=== PATIENT | female | born 1950 | race Caucasian/White ===

== ENCOUNTER 2021-11-27 22:23 | Inpatient (IN) | payer MEDICARE, OTHER ==
[~2021-11-27] VITALS: Ht 167.6 cm; Wt 72.6 kg
[2021-11-27 23:55] LABS: ABG PCO2 40 mmHg (35-45); ABG PH 7.56 (7.35-7.45); ABG PO2 37 mmHg (80-105)
[2021-11-27 23:56] LABS: ABG HCO3 13 mmol/L (22-26); ABG TCO2 37
[2021-11-27 23:58] LABS: BASOPHILS # (AUTO) 0.1 (0.0-0.1); BASOPHILS % 0.2 % (0.0-1.0); EOSINOPHILS # (AUTO) 0.1 (0.0-0.4); EOSINOPHILS % 0.2 % (0.0-6.0); HEMATOCRIT 23.6 % (34.2-44.1); LYMPHOCYTES # (AUTO) 0.6 (1.0-3.2); LYMPHOCYTES % 2.1 % (18.0-39.1); MEAN CORPUSCULAR HEMOGLOBIN 32.4 pg (28-32); MEAN CORPUSCULAR HGB CONC 28.8 g/dL (31-35); MEAN CORPUSCULAR VOLUME 112.4 fL (81-99); MONOCYTES # (AUTO) 1.1 (0.2-0.8); MONOCYTES % 3.6 % (4.4-11.3); NEUTROPHILS # (AUTO) 27.5 (2.1-6.9); NEUTROPHILS % 90.5 % (38.7-80.0); PLATELET COUNT 611 x10e3/uL (140-360); RED CELL DISTRIBUTION WIDTH 19.6 % (11.7-14.4)
[2021-11-28 00:05] LABS: HEMOGLOBIN 6.8 g/dL (12.0-16.0)
[2021-11-28 00:14] LABS: ALBUMIN 2.2 g/dL (3.5-5.0); ALBUMIN/GLOBULIN RATIO 0.6 (0.8-2.0); ANION GAP 17.8 mmol/L (8-16); CALCIUM 8.8 mg/dL (8.4-10.2); CREATININE, SERUM 0.54 mg/dL (0.57-1.11)
[2021-11-28] MEDS ORDERED: CEFTRIAXONE 1 GM in SODIUM CHLORIDE 0.9% 50ML 50 ML IV SCH (00:15)
[2021-11-28 00:22] LABS: POTASSIUM 2.8 mmol/L (3.5-5.1)
[2021-11-28] MEDS ORDERED: POTASSIUM CHLORIDE 20MEQ/100ML 100 ML IV STA ×2 (00:24)
[2021-11-28] MEDS ORDERED: SODIUM CHLORIDE 0.9% 250ML 250 ML IV ONE (01:45)
[2021-11-28] MEDS ORDERED: ONDANSETRON HCL INJ 2MG/ML 2ML 2 MG/ML VIAL IV PRN (01:45)
[2021-11-28] MEDS ORDERED: ACETAMINOPHEN 325 MG TAB PO PRN (01:45)
[2021-11-28] MEDS ORDERED: GUAIFENESIN/DEXTROMETHORPHAN LIQD 5 ML UDC NG PRN (02:00)
[2021-11-28 02:53] LABS: CLARITY,URINE SL CLOUDY (CLEAR); LEUKOCYTE ESTERASE ,URINE NEGATIVE (NEGATIVE); NITRITE,URINE NEGATIVE (NEGATIVE); PROTEIN,URINE DIPSTICK TRACE (NEGATIVE)
[2021-11-28 02:54] LABS: AMPHETAMINES SCREEN,URINE NEGATIVE (NEGATIVE); BENZODIAZEPINES SCREEN,URINE NEGATIVE (NEGATIVE); COLOR,URINE YELLOW (YELLOW); KETONES,URINE NEGATIVE (NEGATIVE); PHENCYCLIDINE SCREEN,URINE NEGATIVE (NEGATIVE); URINE UROBILINOGEN 0.2 mg/dL (0.2 - 1)
[2021-11-28 03:17] LABS: CREATINE KINASE MB 0.5 ng/mL (0-5.0)
[2021-11-28 03:18] LABS: BACTERIA,URINE MODERATE /HPF
[2021-11-28 03:19] LABS: EPITHELIAL CELLS,URINE MODERATE /LPF; MUCUS,URINE MANY (RARE); TRANSITIONAL EPI CELLS,URINE FEW
[2021-11-28] MEDS ORDERED: KCL 20MEQ/.9 SOD CHL 1,000 ML IV ONE ×2 (03:32→04:45)
[2021-11-28 03:49] LABS: FERRITIN 1612.98 ng/mL (4.63-204.00)
[2021-11-28 06:36] LABS: BASOPHILS % 0.2 % (0.0-1.0); LYMPHOCYTES # (AUTO) 0.5 (1.0-3.2); LYMPHOCYTES % 2.3 % (18.0-39.1); MEAN CORPUSCULAR HGB CONC 30.1 g/dL (31-35); MEAN CORPUSCULAR VOLUME 116.6 fL (81-99); MONOCYTES # (AUTO) 0.2 (0.2-0.8); MONOCYTES % 1.1 % (4.4-11.3); NEUTROPHILS # (AUTO) 20.2 (2.1-6.9); NEUTROPHILS % 93.6 % (38.7-80.0); PLATELET COUNT 520 x10e3/uL (140-360); RED BLOOD COUNT 1.57 x10e6/uL (3.6-5.1); RED CELL DISTRIBUTION WIDTH 20.5 % (11.7-14.4)
[2021-11-28 06:48] LABS: ALBUMIN 1.9 g/dL (3.5-5.0); ALBUMIN/GLOBULIN RATIO 0.6 (0.8-2.0); CREATININE, SERUM 0.45 mg/dL (0.57-1.11)
[2021-11-28 06:55] LABS: CREATINE KINASE MB 0.3 ng/mL (0-5.0)
[2021-11-28 06:59] LABS: HEMATOCRIT 18.3 % (34.2-44.1); HEMOGLOBIN 5.5 g/dL (12.0-16.0)
[2021-11-28] MEDS ORDERED: SODIUM CHLORIDE 0.9% 250ML 250 ML ONE (07:53)
[2021-11-28] MEDS: ENOXAPARIN 30 MG/0.3 ML SYR SC SCH ×2 (08:01→18:56)
[2021-11-28] MEDS: DEXAMETHASONE SOD PHOS 10 MG/1 ML VIAL IV SCH (08:01)
[2021-11-28] MEDS: BENZONATATE 100 MG CAP PO SCH ×3 (09:00→21:53)
[2021-11-28] MEDS: ASCORBIC ACID 500 MG TAB PO SCH ×2 (09:00→18:56)
[2021-11-28] MEDS ORDERED: CEFTRIAXONE 2 GM in SODIUM CHLORIDE 0.9% 100 ML IV SCH (09:00)
[2021-11-28] MEDS: ZINC SULFATE 50 MG CAP PO SCH (09:00)
[2021-11-28 11:02] LABS: LYMPHOCYTES % (MANUAL) 4 % (19-48); NEUTROPHILS % (MANUAL) 96 % (40-74)
[2021-11-28 11:03] LABS: PLATELET ESTIMATE SLIGHTLY INCREASED; PLATELET MORPHOLOGY COMMENT NORMAL; RBC MORPHOLOGY COMMENT NORMAL
[2021-11-28] MEDS ORDERED: SODIUM CHLORIDE 0.9% 1000ML 1,000 ML IV ONE (13:45)
[2021-11-28] MEDS ORDERED: SODIUM CHLORIDE 0.9% 50ML 50 ML ONE (13:52)
[2021-11-28] MEDS ORDERED: IOPAMIDOL 370 MG/ML 200 ML INFUS..BTL INJ ONE (13:52)
[2021-11-28] MEDS ORDERED: GUAIFENESI100 MG/5 M PO (14:07)
[2021-11-28] MEDS ORDERED: DIPHENHYDRAMINE25 MG PO (14:16)
[2021-11-28] MEDS ORDERED: POLYETHYLENE GL17 GM PO (14:16)
[2021-11-28] MEDS ORDERED: FOSAMAX70 MG PO (14:16)
[2021-11-28] MEDS ORDERED: PROTONIX40 MG PO (14:16)
[2021-11-28] MEDS ORDERED: ULTRAM50 MG PO (14:16)
[2021-11-28] MEDS ORDERED: METOPROLOL SUCC25 MG PO (14:16)
[2021-11-28] MEDS ORDERED: NYSTATIN1 EAC2 TOP (14:16)
[2021-11-28] MEDS ORDERED: BACLOFEN10 MG PO (14:16)
[2021-11-28] MEDS ORDERED: SUCRALFATE1 G/10 ML (14:16)
[2021-11-28] MEDS ORDERED: LIPITOR20 MG PO (14:16)
[2021-11-28] MEDS ORDERED: AMLODIPINE BESYL5 MG PO (14:16)
[2021-11-28] MEDS ORDERED: ZOLOFT50 MG (14:16)
[2021-11-28] MEDS ORDERED: KLONOPIN0.5 MG PO (14:16)
[2021-11-28] MEDS ORDERED: TRAZODONE HCL50 MG PO (14:16)
[2021-11-28] MEDS ORDERED: LASIX40 MG PO (14:16)
[2021-11-28] MEDS ORDERED: TYLENOL325 MG PO (14:16)
[2021-11-28 15:20] LABS: BASOPHILS % 0.1 % (0.0-1.0); HEMATOCRIT 29.7 % (34.2-44.1); LYMPHOCYTES # (AUTO) 0.6 (1.0-3.2); LYMPHOCYTES % 3.2 % (18.0-39.1); MEAN CORPUSCULAR HEMOGLOBIN 30.1 pg (28-32); MEAN CORPUSCULAR HGB CONC 30.3 g/dL (31-35); MEAN CORPUSCULAR VOLUME 99.3 fL (81-99); MONOCYTES # (AUTO) 0.6 (0.2-0.8); MONOCYTES % 3.6 % (4.4-11.3); NEUTROPHILS # (AUTO) 16.2 (2.1-6.9); NEUTROPHILS % 91.4 % (38.7-80.0); PLATELET COUNT 520 x10e3/uL (140-360); RED BLOOD COUNT 2.99 x10e6/uL (3.6-5.1); RED CELL DISTRIBUTION WIDTH 24.4 % (11.7-14.4)
[2021-11-28 15:46] LABS: CREATINE KINASE MB 0.6 ng/mL (0-5.0)
[2021-11-28] MEDS ORDERED: REMDESIVIR 100MG 200 MG in SODIUM CHLORIDE 0.9% 100 ML IV ONE (16:30)
[2021-11-28] MEDS: PIPERACILLIN/TAZOBACTAM 3.375 GM in SODIUM CHLORIDE 0.9% 50ML 50 ML IV SCH (18:56)
[2021-11-28] MEDS ORDERED: GUAIFENESIN 200 MG/10 ML UDC PO PRN (19:00)
[2021-11-28 20:52] VITALS: BP 136/72
[2021-11-28 21:36] VITALS: BP 118/72
[2021-11-28 21:40] VITALS: BP 118/72
[2021-11-28] MEDS: TRAZODONE HCL 50 MG TAB PO SCH (21:53)
[2021-11-28] MEDS: BACLOFEN 10 MG TAB PO SCH (21:53)
[2021-11-28] MEDS: ATORVASTATIN 20 MG TAB PO SCH (21:53)
[2021-11-29] VITALS (8 sets, daily range): BP systolic 110–134; BP diastolic 63–76
[2021-11-29] MEDS: PIPERACILLIN/TAZOBACTAM 3.375 GM in SODIUM CHLORIDE 0.9% 50ML 50 ML IV SCH ×4 (00:21→18:25)
[2021-11-29] MEDS: CLONAZEPAM 0.5 MG TAB PO PRN ×2 (00:22→20:17)
[2021-11-29] MEDS: PANTOPRAZOLE SODIUM 40 MG SUSPDR.PKT PO SCH ×2 (08:00→17:13)
[2021-11-29] MEDS: AMLODIPINE BESYLATE 5 MG TAB PO SCH (09:22)
[2021-11-29] MEDS: POLYETHYLENE GLYCOL 3350 17 GM PACK PO SCH (09:22)
[2021-11-29] MEDS: BENZONATATE 100 MG CAP PO SCH ×3 (09:22→20:17)
[2021-11-29] MEDS: METOPROLOL SUCCINATE 25 MG TAB XL PO SCH (09:22)
[2021-11-29] MEDS: BACLOFEN 10 MG TAB PO SCH ×3 (09:22→20:17)
[2021-11-29] MEDS: ZINC SULFATE 50 MG CAP PO SCH (09:23)
[2021-11-29] MEDS: SERTRALINE HCL 50 MG TAB PO SCH (09:23)
[2021-11-29] MEDS: ACETAMINOPHEN 325 MG TAB PO SCH (09:23)
[2021-11-29] MEDS: ENOXAPARIN 30 MG/0.3 ML SYR SC SCH ×2 (09:23→17:13)
[2021-11-29] MEDS: ASCORBIC ACID 500 MG TAB PO SCH ×2 (09:23→17:13)
[2021-11-29 09:33] LABS: BASOPHILS % 0.2 % (0.0-1.0); EOSINOPHILS % 0.1 % (0.0-6.0); HEMATOCRIT 35.8 % (34.2-44.1); LYMPHOCYTES # (AUTO) 0.7 (1.0-3.2); LYMPHOCYTES % 3.7 % (18.0-39.1); MEAN CORPUSCULAR HEMOGLOBIN 30.6 pg (28-32); MEAN CORPUSCULAR HGB CONC 30.7 g/dL (31-35); MEAN CORPUSCULAR VOLUME 99.4 fL (81-99); MONOCYTES # (AUTO) 1.3 (0.2-0.8); MONOCYTES % 7.1 % (4.4-11.3); NEUTROPHILS # (AUTO) 16.3 (2.1-6.9); NEUTROPHILS % 87.4 % (38.7-80.0); PLATELET COUNT 554 x10e3/uL (140-360); RED CELL DISTRIBUTION WIDTH 25.1 % (11.7-14.4)
[2021-11-29] MEDS: DEXAMETHASONE SOD PHOS 10 MG/1 ML VIAL IV SCH (09:55)
[2021-11-29 10:07] LABS: ALBUMIN 2.2 g/dL (3.5-5.0); ALBUMIN/GLOBULIN RATIO 0.7 (0.8-2.0); CALCIUM 8.1 mg/dL (8.4-10.2); CREATININE, SERUM 0.5 mg/dL (0.57-1.11)
[2021-11-29] MEDS ORDERED: POTASSIUM CHLORIDE 20 MEQ TAB CR PO ONE ×2 (11:15→14:30)
[2021-11-29] MEDS ORDERED: SODIUM CHLORIDE 0.9% 250ML 250 ML ONE (11:59)
[2021-11-29] MEDS: NYSTATIN 15 GM POWDER UD BTL TOP SCH ×2 (12:03→17:13)
[2021-11-29] MEDS: REMDESIVIR 100MG 100 MG in SODIUM CHLORIDE 0.9% 100 ML IV SCH (14:09)
[2021-11-29] MEDS: TRAZODONE HCL 50 MG TAB PO SCH (20:17)
[2021-11-29] MEDS: ATORVASTATIN 20 MG TAB PO SCH (20:17)
[2021-11-30] MEDS ORDERED: BISACODYL 5 MG TAB EC PO ONE ×2 (00:10→00:40)
[2021-11-30] MEDS: PIPERACILLIN/TAZOBACTAM 3.375 GM in SODIUM CHLORIDE 0.9% 50ML 50 ML IV SCH ×5 (00:52→23:38)
[2021-11-30 01:46] VITALS: BP 124/81
[2021-11-30] MEDS ORDERED: CITRATE OF MAGNESIA 300ML BOTTLE PO ONE ×2 (05:00→07:00)
[2021-11-30 06:16] VITALS: BP 116/81
[2021-11-30 07:54] VITALS: BP 110/81
[2021-11-30 08:47] LABS: BASOPHILS % 0.1 % (0.0-1.0); EOSINOPHILS % 0.2 % (0.0-6.0); HEMATOCRIT 30.9 % (34.2-44.1); HEMOGLOBIN 9.2 g/dL (12.0-16.0); LYMPHOCYTES % 8.1 % (18.0-39.1); MEAN CORPUSCULAR HEMOGLOBIN 29.3 pg (28-32); MEAN CORPUSCULAR HGB CONC 29.8 g/dL (31-35); MEAN CORPUSCULAR VOLUME 98.4 fL (81-99); MONOCYTES # (AUTO) 1.3 (0.2-0.8); MONOCYTES % 10.2 % (4.4-11.3); NEUTROPHILS # (AUTO) 9.9 (2.1-6.9); NEUTROPHILS % 79.9 % (38.7-80.0); PLATELET COUNT 530 x10e3/uL (140-360); RED BLOOD COUNT 3.14 x10e6/uL (3.6-5.1); RED CELL DISTRIBUTION WIDTH 23.6 % (11.7-14.4)
[2021-11-30 09:09] LABS: MAGNESIUM 2.2 MG/DL (1.3-2.1); PHOSPHORUS 3.3 MG/DL (2.3-4.7)
[2021-11-30 09:12] LABS: ALBUMIN 1.9 g/dL (3.5-5.0); ALBUMIN/GLOBULIN RATIO 0.7 (0.8-2.0); ANION GAP 6.7 mmol/L (8-16); CALCIUM 7.8 mg/dL (8.4-10.2); CREATININE, SERUM 0.42 mg/dL (0.57-1.11)
[2021-11-30] MEDS: DEXAMETHASONE SOD PHOS 10 MG/1 ML VIAL IV SCH (09:13)
[2021-11-30] MEDS: FOLIC ACID 1 MG TAB PO SCH (09:14)
[2021-11-30] MEDS: ENOXAPARIN 30 MG/0.3 ML SYR SC SCH ×2 (09:14→17:12)
[2021-11-30] MEDS: ASCORBIC ACID 500 MG TAB PO SCH ×2 (09:14→17:12)
[2021-11-30] MEDS: AMLODIPINE BESYLATE 5 MG TAB PO SCH (09:14)
[2021-11-30] MEDS: ACETAMINOPHEN 325 MG TAB PO SCH (09:14)
[2021-11-30] MEDS: BACLOFEN 10 MG TAB PO SCH ×3 (09:14→21:00)
[2021-11-30] MEDS: PANTOPRAZOLE SOD 40 MG TABEC PO SCH ×2 (09:14→17:12)
[2021-11-30] MEDS: IRON SUCROSE 100 MG in SODIUM CHLORIDE 0.9% 100 ML 100 ML IV SCH (09:14)
[2021-11-30] MEDS: NYSTATIN 15 GM POWDER UD BTL TOP SCH ×2 (09:14→17:12)
[2021-11-30] MEDS: ZINC SULFATE 50 MG CAP PO SCH (09:14)
[2021-11-30] MEDS: BENZONATATE 100 MG CAP PO SCH ×3 (09:14→21:00)
[2021-11-30] MEDS: POLYETHYLENE GLYCOL 3350 17 GM PACK PO SCH (09:14)
[2021-11-30] MEDS: SERTRALINE HCL 50 MG TAB PO SCH (09:14)
[2021-11-30] MEDS: METOPROLOL SUCCINATE 25 MG TAB XL PO SCH (09:15)
[2021-11-30 09:19] LABS: POTASSIUM 2.7 mmol/L (3.5-5.1)
[2021-11-30] MEDS ORDERED: POTASSIUM CHLORIDE 10MEQ EA PO ONE (11:00)
[2021-11-30] MEDS ORDERED: POTASSIUM CHLORIDE 20MEQ/100ML 100 ML IV ONE (11:00)
[2021-11-30] MEDS: REMDESIVIR 100MG 100 MG in SODIUM CHLORIDE 0.9% 100 ML IV SCH (14:30)
[2021-11-30 19:20] VITALS: BP 99/77
[2021-11-30] MEDS: CLONAZEPAM 0.5 MG TAB PO PRN (21:00)
[2021-11-30] MEDS: TRAZODONE HCL 50 MG TAB PO SCH (21:00)
[2021-11-30] MEDS: ATORVASTATIN 20 MG TAB PO SCH (21:00)
[2021-11-30 21:55] VITALS: BP 99/77
[2021-12-01 00:52] VITALS: BP 118/70
[2021-12-01] MEDS: PIPERACILLIN/TAZOBACTAM 3.375 GM in SODIUM CHLORIDE 0.9% 50ML 50 ML IV SCH ×4 (05:09→23:36)
[2021-12-01 05:47] VITALS: BP 124/81
[2021-12-01 08:21] LABS: ANION GAP 10.7 mmol/L (8-16); CALCIUM 8.6 mg/dL (8.4-10.2); CREATININE, SERUM 0.49 mg/dL (0.57-1.11); POTASSIUM 3.7 mmol/L (3.5-5.1)
[2021-12-01] MEDS: PANTOPRAZOLE SOD 40 MG TABEC PO SCH ×2 (08:31→16:54)
[2021-12-01] MEDS: IRON SUCROSE 100 MG in SODIUM CHLORIDE 0.9% 100 ML 100 ML IV SCH (08:31)
[2021-12-01] MEDS: DEXAMETHASONE SOD PHOS 10 MG/1 ML VIAL IV SCH (08:31)
[2021-12-01] MEDS: ACETAMINOPHEN 325 MG TAB PO SCH (08:32)
[2021-12-01] MEDS: BENZONATATE 100 MG CAP PO SCH ×3 (08:32→22:30)
[2021-12-01] MEDS: AMLODIPINE BESYLATE 5 MG TAB PO SCH (08:32)
[2021-12-01] MEDS: FOLIC ACID 1 MG TAB PO SCH (08:32)
[2021-12-01] MEDS: BACLOFEN 10 MG TAB PO SCH ×3 (08:32→22:29)
[2021-12-01] MEDS: POLYETHYLENE GLYCOL 3350 17 GM PACK PO SCH (08:32)
[2021-12-01] MEDS: ASCORBIC ACID 500 MG TAB PO SCH ×2 (08:32→16:54)
[2021-12-01] MEDS: ENOXAPARIN 30 MG/0.3 ML SYR SC SCH ×2 (08:32→16:54)
[2021-12-01] MEDS: ZINC SULFATE 50 MG CAP PO SCH (08:32)
[2021-12-01] MEDS: SERTRALINE HCL 50 MG TAB PO SCH (08:32)
[2021-12-01] MEDS: NYSTATIN 15 GM POWDER UD BTL TOP SCH ×2 (08:32→16:55)
[2021-12-01] MEDS: METOPROLOL SUCCINATE 25 MG TAB XL PO SCH (08:33)
[2021-12-01 09:19] VITALS: BP 130/81
[2021-12-01] MEDS: REMDESIVIR 100MG 100 MG in SODIUM CHLORIDE 0.9% 100 ML IV SCH (14:58)
[2021-12-01 21:21] VITALS: BP 122/70
[2021-12-01] MEDS: TRAZODONE HCL 50 MG TAB PO SCH (22:29)
[2021-12-01] MEDS: ATORVASTATIN 20 MG TAB PO SCH (22:30)
[2021-12-01] MEDS: CLONAZEPAM 0.5 MG TAB PO PRN (22:30)
[2021-12-01] MEDS ORDERED: LOPERAMIDE HCL 2 MG CAP PO PRN (22:30)
[2021-12-01 22:36] VITALS: BP 122/70
[2021-12-02] VITALS (7 sets, daily range): BP systolic 114–130; BP diastolic 66–83
[2021-12-02] MEDS: PIPERACILLIN/TAZOBACTAM 3.375 GM in SODIUM CHLORIDE 0.9% 50ML 50 ML IV SCH ×3 (05:10→17:43)
[2021-12-02 08:30] LABS: BASOPHILS % 0.1 % (0.0-1.0); EOSINOPHILS # (AUTO) 0.1 (0.0-0.4); EOSINOPHILS % 0.5 % (0.0-6.0); HEMATOCRIT 35.7 % (34.2-44.1); HEMOGLOBIN 10.5 g/dL (12.0-16.0); LYMPHOCYTES # (AUTO) 1.3 (1.0-3.2); LYMPHOCYTES % 10.5 % (18.0-39.1); MEAN CORPUSCULAR HEMOGLOBIN 29.7 pg (28-32); MEAN CORPUSCULAR HGB CONC 29.4 g/dL (31-35); MEAN CORPUSCULAR VOLUME 100.8 fL (81-99); MONOCYTES % 7.9 % (4.4-11.3); NEUTROPHILS # (AUTO) 10.1 (2.1-6.9); PLATELET COUNT 626 x10e3/uL (140-360); RED BLOOD COUNT 3.54 x10e6/uL (3.6-5.1); RED CELL DISTRIBUTION WIDTH 21.8 % (11.7-14.4)
[2021-12-02] MEDS: DEXAMETHASONE SOD PHOS 10 MG/1 ML VIAL IV SCH (08:48)
[2021-12-02] MEDS: AMLODIPINE BESYLATE 5 MG TAB PO SCH (08:48)
[2021-12-02] MEDS: IRON SUCROSE 100 MG in SODIUM CHLORIDE 0.9% 100 ML 100 ML IV SCH ×2 (08:48→09:53)
[2021-12-02] MEDS: BACLOFEN 10 MG TAB PO SCH ×3 (08:48→22:34)
[2021-12-02] MEDS: PANTOPRAZOLE SOD 40 MG TABEC PO SCH ×2 (08:48→16:57)
[2021-12-02] MEDS: FOLIC ACID 1 MG TAB PO SCH (08:48)
[2021-12-02] MEDS: POLYETHYLENE GLYCOL 3350 17 GM PACK PO SCH ×2 (08:48→09:00)
[2021-12-02] MEDS: BENZONATATE 100 MG CAP PO SCH ×3 (08:49→22:34)
[2021-12-02] MEDS: ACETAMINOPHEN 325 MG TAB PO SCH (08:49)
[2021-12-02] MEDS: NYSTATIN 15 GM POWDER UD BTL TOP SCH ×2 (08:49→16:57)
[2021-12-02] MEDS: ZINC SULFATE 50 MG CAP PO SCH (08:49)
[2021-12-02] MEDS: SERTRALINE HCL 50 MG TAB PO SCH (08:49)
[2021-12-02] MEDS: ASCORBIC ACID 500 MG TAB PO SCH ×2 (08:49→16:57)
[2021-12-02] MEDS: ENOXAPARIN 30 MG/0.3 ML SYR SC SCH ×2 (08:49→16:57)
[2021-12-02] MEDS: METOPROLOL SUCCINATE 25 MG TAB XL PO SCH (08:49)
[2021-12-02 08:55] LABS: ALBUMIN 2.5 g/dL (3.5-5.0); ALBUMIN/GLOBULIN RATIO 0.8 (0.8-2.0); ANION GAP 10.3 mmol/L (8-16); CALCIUM 8.4 mg/dL (8.4-10.2); CREATININE, SERUM 0.46 mg/dL (0.57-1.11); POTASSIUM 3.3 mmol/L (3.5-5.1)
[2021-12-02] MEDS: REMDESIVIR 100MG 100 MG in SODIUM CHLORIDE 0.9% 100 ML IV SCH (14:15)
[2021-12-02] MEDS ORDERED: CALCIUM CARBONATE 500 MG CHEWABLE TABS PO PRN (19:00)
[2021-12-02] MEDS ORDERED: FAMOTIDINE 20 MG TAB PO ONE (19:15)
[2021-12-02] MEDS: TRAZODONE HCL 50 MG TAB PO SCH (22:34)
[2021-12-02] MEDS: ATORVASTATIN 20 MG TAB PO SCH (22:34)
[2021-12-03] VITALS (9 sets, daily range): BP systolic 100–142; BP diastolic 66–89
[2021-12-03] MEDS: PIPERACILLIN/TAZOBACTAM 3.375 GM in SODIUM CHLORIDE 0.9% 50ML 50 ML IV SCH ×2 (00:27→06:00)
[2021-12-03 05:38] LABS: BASOPHILS % 0.1 % (0.0-1.0); EOSINOPHILS # (AUTO) 0.1 (0.0-0.4); EOSINOPHILS % 0.6 % (0.0-6.0); HEMOGLOBIN 12.3 g/dL (12.0-16.0); LYMPHOCYTES # (AUTO) 1.1 (1.0-3.2); LYMPHOCYTES % 5.6 % (18.0-39.1); MEAN CORPUSCULAR HEMOGLOBIN 30.2 pg (28-32); MEAN CORPUSCULAR VOLUME 100.7 fL (81-99); MONOCYTES # (AUTO) 1.2 (0.2-0.8); MONOCYTES % 5.9 % (4.4-11.3); NEUTROPHILS # (AUTO) 17.5 (2.1-6.9); NEUTROPHILS % 86.1 % (38.7-80.0); PLATELET COUNT 667 x10e3/uL (140-360); RED BLOOD COUNT 4.07 x10e6/uL (3.6-5.1); RED CELL DISTRIBUTION WIDTH 21.5 % (11.7-14.4)
[2021-12-03 06:06] LABS: ALBUMIN 2.8 g/dL (3.5-5.0); ALBUMIN/GLOBULIN RATIO 0.9 (0.8-2.0); ANION GAP 12.2 mmol/L (8-16); CALCIUM 8.9 mg/dL (8.4-10.2); CREATININE, SERUM 0.46 mg/dL (0.57-1.11); POTASSIUM 3.2 mmol/L (3.5-5.1)
[2021-12-03] MEDS ORDERED: POTASSIUM CHLORIDE 20 MEQ TAB CR PO STA (08:19)
[2021-12-03] MEDS: METOPROLOL SUCCINATE 25 MG TAB XL PO SCH (09:00)
[2021-12-03] MEDS: POLYETHYLENE GLYCOL 3350 17 GM PACK PO SCH (09:00)
[2021-12-03] MEDS: FAMOTIDINE 20 MG TAB PO SCH ×2 (09:51→17:07)
[2021-12-03] MEDS: PANTOPRAZOLE SOD 40 MG TABEC PO SCH ×2 (09:51→17:07)
[2021-12-03] MEDS: BACLOFEN 10 MG TAB PO SCH ×3 (09:52→21:09)
[2021-12-03] MEDS: FOLIC ACID 1 MG TAB PO SCH (09:52)
[2021-12-03] MEDS: IRON SUCROSE 100 MG in SODIUM CHLORIDE 0.9% 100 ML 100 ML IV SCH (09:52)
[2021-12-03] MEDS: BENZONATATE 100 MG CAP PO SCH ×3 (09:52→21:09)
[2021-12-03] MEDS: DEXAMETHASONE SOD PHOS 10 MG/1 ML VIAL IV SCH (09:52)
[2021-12-03] MEDS: AMLODIPINE BESYLATE 5 MG TAB PO SCH (09:52)
[2021-12-03] MEDS: SERTRALINE HCL 50 MG TAB PO SCH (09:53)
[2021-12-03] MEDS: NYSTATIN 15 GM POWDER UD BTL TOP SCH ×2 (09:53→17:07)
[2021-12-03] MEDS: ENOXAPARIN 30 MG/0.3 ML SYR SC SCH ×2 (09:53→17:07)
[2021-12-03] MEDS: ACETAMINOPHEN 325 MG TAB PO SCH (09:53)
[2021-12-03] MEDS: ZINC SULFATE 50 MG CAP PO SCH (09:53)
[2021-12-03] MEDS: ASCORBIC ACID 500 MG TAB PO SCH ×2 (09:53→17:07)
[2021-12-03] MEDS: TRAZODONE HCL 50 MG TAB PO SCH (21:09)
[2021-12-03] MEDS: ATORVASTATIN 20 MG TAB PO SCH (21:09)
[2021-12-04] MEDS: CLONAZEPAM 0.5 MG TAB PO PRN ×2 (01:45→04:08)
[2021-12-04 05:17] LABS: BASOPHILS % 0.2 % (0.0-1.0); EOSINOPHILS # (AUTO) 0.1 (0.0-0.4); EOSINOPHILS % 0.2 % (0.0-6.0); HEMATOCRIT 41.1 % (34.2-44.1); LYMPHOCYTES # (AUTO) 0.8 (1.0-3.2); LYMPHOCYTES % 4.1 % (18.0-39.1); MEAN CORPUSCULAR HEMOGLOBIN 31.1 pg (28-32); MEAN CORPUSCULAR HGB CONC 29.2 g/dL (31-35); MEAN CORPUSCULAR VOLUME 106.5 fL (81-99); MONOCYTES # (AUTO) 1.1 (0.2-0.8); MONOCYTES % 5.3 % (4.4-11.3); NEUTROPHILS # (AUTO) 17.9 (2.1-6.9); NEUTROPHILS % 88.4 % (38.7-80.0); PLATELET COUNT 645 x10e3/uL (140-360); RED BLOOD COUNT 3.86 x10e6/uL (3.6-5.1); RED CELL DISTRIBUTION WIDTH 22.8 % (11.7-14.4)
[2021-12-04 05:21] VITALS: BP 126/61
[2021-12-04] MEDS: FAMOTIDINE 20 MG TAB PO SCH ×2 (07:30→17:00)
[2021-12-04 08:10] VITALS: BP 120/73
[2021-12-04 08:37] LABS: EOSINOPHILS % (MANUAL) 1 % (0-7); LYMPHOCYTES % (MANUAL) 7 % (19-48); MONOCYTES % (MANUAL) 4 % (3.4-9.0); NEUTROPHILS % (MANUAL) 88 % (40-74); PLATELET ESTIMATE SLIGHTLY INCREASED; PLATELET MORPHOLOGY COMMENT NORMAL; RBC MORPHOLOGY COMMENT NORMAL
[2021-12-04] MEDS: IRON SUCROSE 100 MG in SODIUM CHLORIDE 0.9% 100 ML 100 ML IV SCH (09:00)
[2021-12-04] MEDS: POLYETHYLENE GLYCOL 3350 17 GM PACK PO SCH (09:00)
[2021-12-04] MEDS: BENZONATATE 100 MG CAP PO SCH ×3 (09:14→20:57)
[2021-12-04] MEDS: BACLOFEN 10 MG TAB PO SCH ×3 (09:14→20:57)
[2021-12-04] MEDS: AMLODIPINE BESYLATE 5 MG TAB PO SCH (09:14)
[2021-12-04] MEDS: FOLIC ACID 1 MG TAB PO SCH (09:14)
[2021-12-04] MEDS: ACETAMINOPHEN 325 MG TAB PO SCH (09:15)
[2021-12-04] MEDS: METOPROLOL SUCCINATE 25 MG TAB XL PO SCH (09:15)
[2021-12-04] MEDS: ASCORBIC ACID 500 MG TAB PO SCH ×2 (09:15→17:22)
[2021-12-04] MEDS: ENOXAPARIN 30 MG/0.3 ML SYR SC SCH ×2 (09:15→17:22)
[2021-12-04] MEDS: NYSTATIN 15 GM POWDER UD BTL TOP SCH ×2 (09:15→17:22)
[2021-12-04] MEDS: SERTRALINE HCL 50 MG TAB PO SCH (09:15)
[2021-12-04] MEDS: ZINC SULFATE 50 MG CAP PO SCH (09:15)
[2021-12-04 09:22] VITALS: BP 120/73
[2021-12-04] MEDS ORDERED: CEFEPIME 1 GM in SODIUM CHLORIDE 0.9% 50ML 50 ML IV SCH (11:00)
[2021-12-04 12:20] VITALS: BP 112/80
[2021-12-04] MEDS ORDERED: ONDANSETRON HCL 4 MG ORAL DISINTEGRATING TAB PO PRN (15:30)
[2021-12-04] MEDS ORDERED: PANTOPRAZOLE SOD 40 MG TABEC PO SCH ×2 (16:45→21:00)
[2021-12-04 18:12] VITALS: BP 102/58
[2021-12-04] MEDS ORDERED: POTASSIUM CHLORIDE 20 MEQ TAB CR PO ONE (19:40)
[2021-12-04] MEDS: ATORVASTATIN 20 MG TAB PO SCH (20:57)
[2021-12-04 21:40] VITALS: BP 108/78
[2021-12-05] MEDS ORDERED: ALENDRONATE SODIUM 70 MG TAB PO SCH (06:00)
== END 2021-12-04 22:15 | DRG 871 ==
LOC: ER 23:46 → ERHOLD 11-28 01:48 → IMCU 11-28 18:25
PROVIDERS: ADMIT Internal Medicine; ATTEND Internal Medicine
PROC: 02HV33Z Insertion of Infusion Device into Superior Vena Cava, Percutaneous Approach (ICD-10-PCS; principal; 2021-12-04)
DX: A41.89 Other specified sepsis (principal); U07.1 COVID-19; J12.82 Pneumonia due to coronavirus disease 2019; G93.41 Metabolic encephalopathy; J69.0 Pneumonitis due to inhalation of food and vomit; J96.21 Acute and chronic respiratory failure with hypoxia; D62 Acute posthemorrhagic anemia; Z88.1 Allergy status to other antibiotic agents; Z88.5 Allergy status to narcotic agent; Z88.0 Allergy status to penicillin; Z88.2 Allergy status to sulfonamides; G35 Multiple sclerosis; F41.1 Generalized anxiety disorder; D75.839 Thrombocytosis, unspecified; E87.6 Hypokalemia; M54.50 Low back pain, unspecified; D50.9 Iron deficiency anemia, unspecified
CPT/HCPCS: 36415; 36569; 36600; 71045; 71250; 74177; 74470; 76700; 80048; 80053; 80307; 81001; 82270; 82550; 82553; 82607; 82728; 82746; 82805; 83540; 83605; 83735; 83880; 84100; 84132; 84134; 84466; 84484; 85025; 86850; 86900; 86920; 87040; 93005; 94799; 96360; 97139; 99285; J0248; J0456; J0696; J1100; J1650; J1756; J2543; J3480; J7030; J7050; P9016; Q9967; U0002

== ENCOUNTER 2021-12-25 13:12 | Inpatient (IN) | payer MEDICARE, OTHER ==
[~2021-12-25] VITALS: Ht 154.9 cm; Wt 72.6 kg
[~2021-12-25 13:12] MED LIST: AMLODIPINE BESYL5 MG PO; BACLOFEN10 MG PO; DIPHENHYDRAMINE25 MG PO; FOSAMAX70 MG PO; GUAIFENESI100 MG/5 M PO; KLONOPIN0.5 MG PO; LASIX40 MG PO; LIPITOR20 MG PO; METOPROLOL SUCC25 MG PO; NYSTATIN1 EAC2 TOP; POLYETHYLENE GL17 GM PO; PROTONIX40 MG PO; SUCRALFATE1 G/10 ML; TRAZODONE HCL50 MG PO; TYLENOL325 MG PO; ULTRAM50 MG PO; ZOLOFT50 MG
[2021-12-25 13:44] LABS: BASOPHILS # (AUTO) 0.1 (0.0-0.1); BASOPHILS % 0.5 % (0.0-1.0); EOSINOPHILS # (AUTO) 0.3 (0.0-0.4); EOSINOPHILS % 1.8 % (0.0-6.0); HEMATOCRIT 40.1 % (34.2-44.1); LYMPHOCYTES # (AUTO) 0.9 (1.0-3.2); LYMPHOCYTES % 4.9 % (18.0-39.1); MEAN CORPUSCULAR HGB CONC 29.9 g/dL (31-35); MEAN CORPUSCULAR VOLUME 96.9 fL (81-99); MONOCYTES % 5.8 % (4.4-11.3); NEUTROPHILS % 86.1 % (38.7-80.0); PLATELET COUNT 562 x10e3/uL (140-360); RED BLOOD COUNT 4.14 x10e6/uL (3.6-5.1)
[2021-12-25] MEDS ORDERED: SODIUM CHLORIDE 0.9% 1000ML 1,000 ML IV SCH (13:45)
[2021-12-25 13:46] LABS: CLARITY,URINE CLOUDY (CLEAR); COLOR,URINE YELLOW (YELLOW); KETONES,URINE NEGATIVE (NEGATIVE); LEUKOCYTE ESTERASE ,URINE NEGATIVE (NEGATIVE); NITRITE,URINE NEGATIVE (NEGATIVE); PROTEIN,URINE DIPSTICK 1+ (NEGATIVE)
[2021-12-25 13:47] LABS: URINE UROBILINOGEN 1 mg/dL (0.2 - 1)
[2021-12-25 13:49] LABS: BACTERIA,URINE FEW /HPF; EPITHELIAL CELLS,URINE RARE /LPF; RBC,URINE 0-5 /HPF (0-5)
[2021-12-25 13:50] LABS: AMORPHOUS SEDIMENT,URINE FEW (FEW)
[2021-12-25 14:00] LABS: ALBUMIN 2.1 g/dL (3.5-5.0); ALBUMIN/GLOBULIN RATIO 0.5 (0.8-2.0); CALCIUM 8.3 mg/dL (8.4-10.2); CREATININE, SERUM 0.49 mg/dL (0.57-1.11)
[2021-12-25] MEDS: CEFEPIME 1 GM in SODIUM CHLORIDE 0.9% 50ML 50 ML IV SCH (14:23)
[2021-12-25] MEDS: BACLOFEN 10 MG TAB PO SCH ×2 (15:00→20:30)
[2021-12-25 16:07] VITALS: BP 116/59
[2021-12-25 16:15] VITALS: BP 116/59
[2021-12-25] MEDS: PANTOPRAZOLE SOD 40 MG TABEC PO SCH (16:30)
[2021-12-25] MEDS: NYSTATIN 15 GM POWDER UD BTL TOP SCH (17:00)
[2021-12-25] MEDS ORDERED: POTASSIUM CHLORIDE 20 MEQ TAB CR PO ONE (19:25)
[2021-12-25 20:00] VITALS: BP 126/96
[2021-12-25] MEDS: ATORVASTATIN 40 MG TAB PO SCH (20:30)
[2021-12-25] MEDS: TRAZODONE HCL 50 MG TAB PO SCH (20:30)
[2021-12-25] MEDS: CLONAZEPAM 0.5 MG TAB PO PRN (20:40)
[2021-12-26] VITALS: BP 115/74
[2021-12-26] MEDS: CEFEPIME 1 GM in SODIUM CHLORIDE 0.9% 50ML 50 ML IV SCH ×2 (01:40→15:17)
[2021-12-26] MEDS ORDERED: SODIUM CHLORIDE 0.9% 250ML 250 ML ONE (01:44)
[2021-12-26 04:00] VITALS: BP 124/95
[2021-12-26 05:00] LABS: BASOPHILS # (AUTO) 0.1 (0.0-0.1); BASOPHILS % 0.4 % (0.0-1.0); EOSINOPHILS # (AUTO) 0.3 (0.0-0.4); EOSINOPHILS % 2.3 % (0.0-6.0); HEMATOCRIT 37.5 % (34.2-44.1); HEMOGLOBIN 11.1 g/dL (12.0-16.0); LYMPHOCYTES # (AUTO) 0.7 (1.0-3.2); LYMPHOCYTES % 4.9 % (18.0-39.1); MEAN CORPUSCULAR HEMOGLOBIN 29.4 pg (28-32); MEAN CORPUSCULAR HGB CONC 29.6 g/dL (31-35); MEAN CORPUSCULAR VOLUME 99.2 fL (81-99); MONOCYTES # (AUTO) 0.6 (0.2-0.8); MONOCYTES % 4.4 % (4.4-11.3); NEUTROPHILS # (AUTO) 11.9 (2.1-6.9); NEUTROPHILS % 86.8 % (38.7-80.0); PLATELET COUNT 459 x10e3/uL (140-360); RED BLOOD COUNT 3.78 x10e6/uL (3.6-5.1)
[2021-12-26 05:34] LABS: ANION GAP 14.4 mmol/L (8-16); CALCIUM 7.7 mg/dL (8.4-10.2); CREATININE, SERUM 0.43 mg/dL (0.57-1.11); POTASSIUM 3.4 mmol/L (3.5-5.1)
[2021-12-26 08:04] VITALS: BP 124/95
[2021-12-26 08:05] VITALS: BP 123/70
[2021-12-26] MEDS: PANTOPRAZOLE SOD 40 MG TABEC PO SCH ×2 (10:36→15:19)
[2021-12-26] MEDS: AMLODIPINE BESYLATE 5 MG TAB PO SCH (10:36)
[2021-12-26] MEDS: POLYETHYLENE GLYCOL 3350 17 GM PACK PO SCH (10:36)
[2021-12-26] MEDS: BACLOFEN 10 MG TAB PO SCH ×3 (10:36→20:04)
[2021-12-26] MEDS: METOPROLOL SUCCINATE 25 MG TAB XL PO SCH (10:36)
[2021-12-26] MEDS: SERTRALINE HCL 50 MG TAB PO SCH (10:37)
[2021-12-26] MEDS: ACETAMINOPHEN 325 MG TAB PO SCH (10:39)
[2021-12-26] MEDS: CLONAZEPAM 0.5 MG TAB PO PRN ×2 (10:40→20:04)
[2021-12-26] MEDS: NYSTATIN 15 GM POWDER UD BTL TOP SCH ×2 (10:40→17:34)
[2021-12-26] MEDS: TRAMADOL HCL 50 MG TAB PO PRN (11:05)
[2021-12-26 20:00] VITALS: BP 111/63
[2021-12-26] MEDS: ATORVASTATIN 40 MG TAB PO SCH (20:04)
[2021-12-26] MEDS: TRAZODONE HCL 50 MG TAB PO SCH (20:04)
[2021-12-26 21:00] VITALS: BP 111/63
[2021-12-26] MEDS ORDERED: POTASSIUM CHLORIDE 20 MEQ TAB CR PO ONE (21:00)
[2021-12-27] VITALS (8 sets, daily range): BP systolic 105–121; BP diastolic 65–78
[2021-12-27] MEDS: CEFEPIME 1 GM in SODIUM CHLORIDE 0.9% 50ML 50 ML IV SCH ×2 (02:00→14:23)
[2021-12-27] MEDS: TRAMADOL HCL 50 MG TAB PO PRN ×2 (06:08→22:06)
[2021-12-27 07:42] LABS: BASOPHILS # (AUTO) 0.1 (0.0-0.1); BASOPHILS % 0.3 % (0.0-1.0); EOSINOPHILS # (AUTO) 1.2 (0.0-0.4); EOSINOPHILS % 4.7 % (0.0-6.0); HEMATOCRIT 38.5 % (34.2-44.1); HEMOGLOBIN 11.5 g/dL (12.0-16.0); LYMPHOCYTES # (AUTO) 0.5 (1.0-3.2); LYMPHOCYTES % 2.1 % (18.0-39.1); MEAN CORPUSCULAR HEMOGLOBIN 28.8 pg (28-32); MEAN CORPUSCULAR HGB CONC 29.9 g/dL (31-35); MEAN CORPUSCULAR VOLUME 96.5 fL (81-99); MONOCYTES # (AUTO) 0.4 (0.2-0.8); MONOCYTES % 1.5 % (4.4-11.3); NEUTROPHILS % 90.2 % (38.7-80.0); PLATELET COUNT 603 x10e3/uL (140-360); RED BLOOD COUNT 3.99 x10e6/uL (3.6-5.1)
[2021-12-27 07:58] LABS: ANION GAP 15.1 mmol/L (8-16); CALCIUM 8.4 mg/dL (8.4-10.2); CREATININE, SERUM 0.62 mg/dL (0.57-1.11); POTASSIUM 4.1 mmol/L (3.5-5.1)
[2021-12-27] MEDS: AMLODIPINE BESYLATE 5 MG TAB PO SCH (09:08)
[2021-12-27] MEDS: BACLOFEN 10 MG TAB PO SCH ×3 (09:08→20:30)
[2021-12-27] MEDS: POLYETHYLENE GLYCOL 3350 17 GM PACK PO SCH (09:08)
[2021-12-27] MEDS: PANTOPRAZOLE SOD 40 MG TABEC PO SCH ×2 (09:08→16:52)
[2021-12-27] MEDS: METOPROLOL SUCCINATE 25 MG TAB XL PO SCH (09:09)
[2021-12-27] MEDS: ACETAMINOPHEN 325 MG TAB PO SCH (09:10)
[2021-12-27] MEDS: NYSTATIN 15 GM POWDER UD BTL TOP SCH ×2 (09:10→16:52)
[2021-12-27] MEDS: SERTRALINE HCL 50 MG TAB PO SCH (09:10)
[2021-12-27] MEDS: DOCUSATE SODIUM 100 MG CAP PO SCH ×2 (10:17→16:52)
[2021-12-27] MEDS: SENNOSIDES 8.6 MG TAB PO SCH ×2 (10:18→16:52)
[2021-12-27] MEDS: METRONIDAZOLE 500MG/NS 100ML 100 ML IV SCH ×2 (10:25→16:53)
[2021-12-27 10:27] LABS: EOSINOPHILS % (MANUAL) 8 % (0-7); LYMPHOCYTES % (MANUAL) 2 % (19-48); MONOCYTES % (MANUAL) 2 % (3.4-9.0); NEUTROPHILS % (MANUAL) 88 % (40-74); PLATELET MORPHOLOGY COMMENT FEW LARGE; RBC MORPHOLOGY COMMENT NORMAL
[2021-12-27] MEDS: BALSAM PERU/CASTOR OIL 60 GM OINT...G. TP SCH (10:27)
[2021-12-27] MEDS: COLLAGENASE 5 GM TUBE TOP SCH (10:27)
[2021-12-27 10:28] LABS: PLATELET ESTIMATE MODERATELY INCREASED
[2021-12-27] MEDS: TRAZODONE HCL 50 MG TAB PO SCH (20:30)
[2021-12-27] MEDS: ATORVASTATIN 40 MG TAB PO SCH (20:30)
[2021-12-27] MEDS: CLONAZEPAM 0.5 MG TAB PO PRN (20:30)
[2021-12-28 00:47] VITALS: BP 112/64
[2021-12-28] MEDS: METRONIDAZOLE 500MG/NS 100ML 100 ML IV SCH ×2 (01:30→11:45)
[2021-12-28] MEDS: CEFEPIME 1 GM in SODIUM CHLORIDE 0.9% 50ML 50 ML IV SCH ×2 (02:54→13:07)
[2021-12-28 05:53] VITALS: BP 119/68
[2021-12-28 07:28] VITALS: BP 119/68
[2021-12-28 08:13] LABS: ANION GAP 14.8 mmol/L (8-16); CALCIUM 8.6 mg/dL (8.4-10.2); CREATININE, SERUM 0.5 mg/dL (0.57-1.11); POTASSIUM 3.8 mmol/L (3.5-5.1)
[2021-12-28 08:48] VITALS: BP 136/80
[2021-12-28 09:40] LABS: BASOPHILS # (AUTO) 0.1 (0.0-0.1); BASOPHILS % 0.3 % (0.0-1.0); EOSINOPHILS # (AUTO) 1.4 (0.0-0.4); EOSINOPHILS % 5.4 % (0.0-6.0); HEMATOCRIT 39.4 % (34.2-44.1); HEMOGLOBIN 11.5 g/dL (12.0-16.0); LYMPHOCYTES # (AUTO) 0.9 (1.0-3.2); LYMPHOCYTES % 3.3 % (18.0-39.1); MEAN CORPUSCULAR HEMOGLOBIN 28.6 pg (28-32); MEAN CORPUSCULAR HGB CONC 29.2 g/dL (31-35); MONOCYTES # (AUTO) 0.8 (0.2-0.8); NEUTROPHILS # (AUTO) 23.2 (2.1-6.9); NEUTROPHILS % 86.9 % (38.7-80.0); PLATELET COUNT 663 x10e3/uL (140-360); RED BLOOD COUNT 4.02 x10e6/uL (3.6-5.1)
[2021-12-28] MEDS: PANTOPRAZOLE SOD 40 MG TABEC PO SCH ×2 (11:43→16:40)
[2021-12-28] MEDS: AMLODIPINE BESYLATE 5 MG TAB PO SCH (11:43)
[2021-12-28] MEDS: DOCUSATE SODIUM 100 MG CAP PO SCH ×2 (11:43→16:40)
[2021-12-28] MEDS: POLYETHYLENE GLYCOL 3350 17 GM PACK PO SCH (11:43)
[2021-12-28] MEDS: BACLOFEN 10 MG TAB PO SCH ×2 (11:43→16:40)
[2021-12-28] MEDS: SENNOSIDES 8.6 MG TAB PO SCH ×2 (11:43→16:40)
[2021-12-28] MEDS: ACETAMINOPHEN 325 MG TAB PO SCH (11:44)
[2021-12-28] MEDS: NYSTATIN 15 GM POWDER UD BTL TOP SCH ×2 (11:45→16:40)
[2021-12-28] MEDS: METOPROLOL SUCCINATE 25 MG TAB XL PO SCH (11:45)
[2021-12-28] MEDS: COLLAGENASE 5 GM TUBE TOP SCH (11:45)
[2021-12-28] MEDS: BALSAM PERU/CASTOR OIL 60 GM OINT...G. TP SCH (11:45)
[2021-12-28] MEDS: SERTRALINE HCL 50 MG TAB PO SCH (11:46)
[2021-12-28] MEDS: TRAMADOL HCL 50 MG TAB PO PRN ×2 (11:46→18:13)
[2021-12-28 12:35] VITALS: BP 132/72
[2021-12-28] MEDS: CLONAZEPAM 0.5 MG TAB PO PRN (16:40)
== END 2021-12-28 18:27 | DRG 690 ==
LOC: ER 13:28 → ERHOLD 13:38 → MED/SURG2 14:45 → OBSVTOIN 12-27 09:05
PROVIDERS: ADMIT Internal Medicine; ATTEND Internal Medicine
DX: N39.0 Urinary tract infection, site not specified (principal); J96.10 Chronic respiratory failure, unspecified whether with hypoxia or hypercapnia; I10 Essential (primary) hypertension; Z86.73 Personal history of transient ischemic attack (TIA), and cerebral infarction without residual deficits; I25.10 Atherosclerotic heart disease of native coronary artery without angina pectoris; F41.9 Anxiety disorder, unspecified; G35 Multiple sclerosis; Z88.1 Allergy status to other antibiotic agents; Z88.5 Allergy status to narcotic agent; Z88.0 Allergy status to penicillin; Z88.2 Allergy status to sulfonamides; Z88.8 Allergy status to other drugs, medicaments and biological substances; Z86.16 Personal history of COVID-19; E87.6 Hypokalemia; Z95.5 Presence of coronary angioplasty implant and graft; R53.81 Other malaise; Z20.822 Contact with and (suspected) exposure to COVID-19; B96.89 Other specified bacterial agents as the cause of diseases classified elsewhere; F41.1 Generalized anxiety disorder
CPT/HCPCS: 36415; 51700; 80048; 80053; 81001; 82948; 83605; 85025; 87040; 87086; 94799; 97139; 99251; 99284; G0378; J0692; J7030; J7050; U0002

== ENCOUNTER 2022-04-03 14:53 | Inpatient (IN) | payer MEDICARE, OTHER ==
[~2022-04-03] VITALS: Ht 154.9 cm; Wt 72.6 kg
[2022-04-03 17:14] LABS: BASOPHILS % 0.2 % (0.0-1.0); HEMATOCRIT 33.1 % (34.2-44.1); LYMPHOCYTES # (AUTO) 0.4 (1.0-3.2); LYMPHOCYTES % 1.6 % (18.0-39.1); MEAN CORPUSCULAR HEMOGLOBIN 28.5 pg (28-32); MEAN CORPUSCULAR HGB CONC 30.2 g/dL (31-35); MEAN CORPUSCULAR VOLUME 94.3 fL (81-99); MONOCYTES % 3.7 % (4.4-11.3); NEUTROPHILS # (AUTO) 24.2 (2.1-6.9); NEUTROPHILS % 92.8 % (38.7-80.0); PLATELET COUNT 299 x10e3/uL (140-360); RED BLOOD COUNT 3.51 x10e6/uL (3.6-5.1); RED CELL DISTRIBUTION WIDTH 17.6 % (11.7-14.4)
[2022-04-03 17:28] LABS: ALBUMIN 1.8 g/dL (3.5-5.0); ALBUMIN/GLOBULIN RATIO 0.4 (0.8-2.0); ANION GAP 15.9 mmol/L (8-16); CALCIUM 8.9 mg/dL (8.4-10.2); CREATININE, SERUM 0.95 mg/dL (0.57-1.11); POTASSIUM 3.9 mmol/L (3.5-5.1)
[2022-04-03] MEDS ORDERED: SODIUM CHLORIDE 0.9% 1000ML 1,000 ML IV ONE (17:30)
[2022-04-03 17:34] LABS: CREATINE KINASE MB 1.2 ng/mL (0-5.0)
[2022-04-03 18:03] LABS: INR 0.95; PROTHROMBIN TIME 13.5 seconds (11.9-14.5)
[2022-04-03 18:04] LABS: PARTIAL THROMBOPLASTIN TIME 33.5 seconds (23.8-35.5)
[2022-04-03 19:11] LABS: CLARITY,URINE SL CLOUDY (CLEAR); COLOR,URINE YELLOW (YELLOW); KETONES,URINE NEGATIVE (NEGATIVE); LEUKOCYTE ESTERASE ,URINE NEGATIVE (NEGATIVE); NITRITE,URINE NEGATIVE (NEGATIVE); PROTEIN,URINE DIPSTICK NEGATIVE (NEGATIVE); URINE UROBILINOGEN 0.2 mg/dL (0.2 - 1)
[2022-04-03 19:27] LABS: AMORPHOUS SEDIMENT,URINE MODERATE (FEW); BACTERIA,URINE MODERATE /HPF
[2022-04-03 19:28] LABS: YEAST,URINE FEW
[2022-04-03] MEDS ORDERED: ACETAMINOPHEN 325 MG TAB PO PRN (20:00)
[2022-04-03] MEDS: SODIUM CHLORIDE 0.9% 1000ML 1,000 ML IV SCH (22:00)
[2022-04-03 22:08] VITALS: BP 108/72
[2022-04-03 22:30] VITALS: BP 108/72
[2022-04-04] VITALS (7 sets, daily range): BP systolic 110–128; BP diastolic 61–105
[2022-04-04] MEDS: IPRATROPIUM BROMIDE 0.02% 2.5 ML NEB NEB SCH ×4 (03:30→20:00)
[2022-04-04] MEDS: SODIUM CHLORIDE 0.9% 1000ML 1,000 ML IV SCH ×2 (06:00→16:00)
[2022-04-04 06:02] LABS: BASOPHILS # (AUTO) 0.1 (0.0-0.1); BASOPHILS % 0.2 % (0.0-1.0); HEMATOCRIT 31.1 % (34.2-44.1); HEMOGLOBIN 9.1 g/dL (12.0-16.0); LYMPHOCYTES # (AUTO) 0.7 (1.0-3.2); LYMPHOCYTES % 3.1 % (18.0-39.1); MEAN CORPUSCULAR HEMOGLOBIN 28.3 pg (28-32); MEAN CORPUSCULAR HGB CONC 29.3 g/dL (31-35); MEAN CORPUSCULAR VOLUME 96.9 fL (81-99); MONOCYTES # (AUTO) 0.7 (0.2-0.8); MONOCYTES % 3.4 % (4.4-11.3); NEUTROPHILS # (AUTO) 20.2 (2.1-6.9); NEUTROPHILS % 92.1 % (38.7-80.0); PLATELET COUNT 307 x10e3/uL (140-360); RED BLOOD COUNT 3.21 x10e6/uL (3.6-5.1); RED CELL DISTRIBUTION WIDTH 17.2 % (11.7-14.4)
[2022-04-04] MEDS: ALBUTEROL SULF 0.083% NEB SOLN 3 ML NEB NEB SCH ×5 (06:52→20:00)
[2022-04-04 06:59] LABS: ALBUMIN 1.7 g/dL (3.5-5.0); ALBUMIN/GLOBULIN RATIO 0.4 (0.8-2.0); ANION GAP 16.1 mmol/L (8-16); CALCIUM 8.6 mg/dL (8.4-10.2); CREATININE, SERUM 0.6 mg/dL (0.57-1.11); POTASSIUM 4.1 mmol/L (3.5-5.1)
[2022-04-04 08:19] LABS: BAND NEUTROPHILS % (MANUAL) 5 %; LYMPHOCYTES % (MANUAL) 7 % (19-48); MONOCYTES % (MANUAL) 2 % (3.4-9.0); NEUTROPHILS % (MANUAL) 86 % (40-74)
[2022-04-04 08:20] LABS: ANISOCYTOSIS SLIGHT; HYPOCHROMASIA SLIGHT; PLATELET ESTIMATE ADEQUATE; PLATELET MORPHOLOGY COMMENT NORMAL; RBC MORPHOLOGY COMMENT NORMAL
[2022-04-04] MEDS ORDERED: GUAIFENESIN 200 MG/10 ML UDC PO PRN (08:45)
[2022-04-04] MEDS ORDERED: CLONAZEPAM 0.5 MG TAB PO PRN (08:45)
[2022-04-04] MEDS ORDERED: ALPRAZOLAM 0.25 MG TAB PO SCH (09:30)
[2022-04-04] MEDS: BACLOFEN 10 MG TAB PO SCH ×3 (11:20→20:47)
[2022-04-04] MEDS: CLONAZEPAM 0.5 MG TAB PO SCH ×2 (11:20→20:47)
[2022-04-04] MEDS: SERTRALINE HCL 50 MG TAB PO SCH (11:20)
[2022-04-04] MEDS: POLYETHYLENE GLYCOL 3350 17 GM PACK PO SCH (11:20)
[2022-04-04] MEDS: METOPROLOL SUCCINATE 25 MG TAB XL PO SCH (11:30)
[2022-04-04] MEDS: PANTOPRAZOLE SOD 40 MG TABEC PO SCH ×2 (11:30→16:19)
[2022-04-04 14:57] LABS: CREATINE KINASE MB 0.4 ng/mL (0-5.0)
[2022-04-04] MEDS: ENOXAPARIN SOD INJ 40 MG/0.4 ML SYR SC SCH (16:19)
[2022-04-04] MEDS: ATORVASTATIN 40 MG TAB PO SCH (20:47)
[2022-04-04] MEDS: TRAZODONE HCL 50 MG TAB PO SCH (20:47)
[2022-04-05] VITALS (7 sets, daily range): BP systolic 101–137; BP diastolic 57–101
[2022-04-05] MEDS: TRAMADOL HCL 50 MG TAB PO PRN ×2 (01:52→12:16)
[2022-04-05] MEDS: SODIUM CHLORIDE 0.9% 1000ML 1,000 ML IV SCH ×3 (01:56→22:29)
[2022-04-05] MEDS: ALBUTEROL SULF 0.083% NEB SOLN 3 ML NEB NEB SCH ×6 (03:30→22:35)
[2022-04-05] MEDS: IPRATROPIUM BROMIDE 0.02% 2.5 ML NEB NEB SCH ×4 (06:50→19:25)
[2022-04-05] MEDS ORDERED: CEPHALEXIN500 MG PO (08:32)
[2022-04-05] MEDS ORDERED: ZITHROMAX500 MG PO (08:32)
[2022-04-05] MEDS ORDERED: ROBITUSSIN COU118 M4 PO (08:32)
[2022-04-05] MEDS ORDERED: BENZONATATE100 MG PO (08:32)
[2022-04-05 08:33] LABS: BASOPHILS % 0.1 % (0.0-1.0); HEMATOCRIT 30.5 % (34.2-44.1); HEMOGLOBIN 9.3 g/dL (12.0-16.0); LYMPHOCYTES # (AUTO) 0.6 (1.0-3.2); LYMPHOCYTES % 2.6 % (18.0-39.1); MEAN CORPUSCULAR HEMOGLOBIN 28.2 pg (28-32); MEAN CORPUSCULAR HGB CONC 30.5 g/dL (31-35); MEAN CORPUSCULAR VOLUME 92.4 fL (81-99); MONOCYTES # (AUTO) 0.6 (0.2-0.8); MONOCYTES % 2.5 % (4.4-11.3); NEUTROPHILS # (AUTO) 22.7 (2.1-6.9); NEUTROPHILS % 93.6 % (38.7-80.0); PLATELET COUNT 350 x10e3/uL (140-360); RED CELL DISTRIBUTION WIDTH 17.5 % (11.7-14.4)
[2022-04-05] MEDS: METOPROLOL SUCCINATE 25 MG TAB XL PO SCH (08:46)
[2022-04-05] MEDS: BACLOFEN 10 MG TAB PO SCH ×3 (08:46→21:00)
[2022-04-05] MEDS: POLYETHYLENE GLYCOL 3350 17 GM PACK PO SCH (08:47)
[2022-04-05] MEDS: PANTOPRAZOLE SOD 40 MG TABEC PO SCH ×2 (08:47→16:20)
[2022-04-05] MEDS: SERTRALINE HCL 50 MG TAB PO SCH (08:47)
[2022-04-05] MEDS: CLONAZEPAM 0.5 MG TAB PO SCH ×2 (08:49→22:30)
[2022-04-05 09:06] LABS: ANION GAP 12.8 mmol/L (8-16); CREATININE, SERUM 0.48 mg/dL (0.57-1.11)
[2022-04-05 09:08] LABS: POTASSIUM 2.8 mmol/L (3.5-5.1)
[2022-04-05 11:36] LABS: ANION GAP 13.1 mmol/L (8-16); CREATININE, SERUM 0.51 mg/dL (0.57-1.11); POTASSIUM 3.1 mmol/L (3.5-5.1)
[2022-04-05 12:30] LABS: BAND NEUTROPHILS % (MANUAL) 4 %; LYMPHOCYTES % (MANUAL) 5 % (19-48); MONOCYTES % (MANUAL) 7 % (3.4-9.0); NEUTROPHILS % (MANUAL) 84 % (40-74); PLATELET ESTIMATE ADEQUATE; PLATELET MORPHOLOGY COMMENT NORMAL
[2022-04-05 12:31] LABS: ANISOCYTOSIS SLIGHT; HYPOCHROMASIA SLIGHT; RBC MORPHOLOGY COMMENT NORMAL
[2022-04-05] MEDS ORDERED: POTASSIUM CHLORIDE 20 MEQ TAB CR PO ONE (13:15)
[2022-04-05] MEDS: ENOXAPARIN SOD INJ 40 MG/0.4 ML SYR SC SCH (16:20)
[2022-04-05] MEDS: TRAZODONE HCL 50 MG TAB PO SCH (21:00)
[2022-04-05] MEDS: ATORVASTATIN 40 MG TAB PO SCH (21:00)
[2022-04-05 21:53] LABS: FERRITIN 2058.76 ng/mL (4.63-204.00)
[2022-04-06 00:58] VITALS: BP 117/71
[2022-04-06 01:20] VITALS: BP 105/62
[2022-04-06] MEDS: IPRATROPIUM BROMIDE 0.02% 2.5 ML NEB NEB SCH ×3 (03:05→11:18)
[2022-04-06] MEDS: ALBUTEROL SULF 0.083% NEB SOLN 3 ML NEB NEB SCH ×3 (03:05→11:18)
[2022-04-06] MEDS: TRAMADOL HCL 50 MG TAB PO PRN ×2 (04:22→10:13)
[2022-04-06 05:26] VITALS: BP 121/74
[2022-04-06 08:10] VITALS: BP 124/78
[2022-04-06 09:02] VITALS: BP 124/78
[2022-04-06 09:26] LABS: BASOPHILS % 0.2 % (0.0-1.0); EOSINOPHILS # (AUTO) 0.1 (0.0-0.4); EOSINOPHILS % 0.7 % (0.0-6.0); HEMATOCRIT 27.9 % (34.2-44.1); HEMOGLOBIN 8.3 g/dL (12.0-16.0); LYMPHOCYTES # (AUTO) 1.1 (1.0-3.2); LYMPHOCYTES % 6.2 % (18.0-39.1); MEAN CORPUSCULAR HEMOGLOBIN 28.1 pg (28-32); MEAN CORPUSCULAR HGB CONC 29.7 g/dL (31-35); MEAN CORPUSCULAR VOLUME 94.6 fL (81-99); MONOCYTES # (AUTO) 0.5 (0.2-0.8); MONOCYTES % 2.6 % (4.4-11.3); NEUTROPHILS # (AUTO) 15.8 (2.1-6.9); NEUTROPHILS % 89.1 % (38.7-80.0); PLATELET COUNT 314 x10e3/uL (140-360); RED BLOOD COUNT 2.95 x10e6/uL (3.6-5.1); RED CELL DISTRIBUTION WIDTH 17.5 % (11.7-14.4)
[2022-04-06] MEDS: PANTOPRAZOLE SOD 40 MG TABEC PO SCH (09:31)
[2022-04-06] MEDS: METOPROLOL SUCCINATE 25 MG TAB XL PO SCH (09:33)
[2022-04-06] MEDS: POLYETHYLENE GLYCOL 3350 17 GM PACK PO SCH (09:33)
[2022-04-06] MEDS: SERTRALINE HCL 50 MG TAB PO SCH (09:33)
[2022-04-06] MEDS: BACLOFEN 10 MG TAB PO SCH (09:33)
[2022-04-06] MEDS: CLONAZEPAM 0.5 MG TAB PO SCH (09:34)
[2022-04-06] MEDS: SODIUM CHLORIDE 0.9% 1000ML 1,000 ML IV SCH (09:39)
[2022-04-06 09:43] LABS: ANION GAP 12.6 mmol/L (8-16); CALCIUM 7.8 mg/dL (8.4-10.2); CREATININE, SERUM 0.44 mg/dL (0.57-1.11); POTASSIUM 3.6 mmol/L (3.5-5.1)
[2022-04-06] MEDS ORDERED: FEROSUL325 MG PO (10:42)
[2022-04-06] MEDS ORDERED: LOPRESSOR25 MG PO (10:43)
[2022-04-06 12:59] VITALS: BP 127/56
[2022-04-06] MEDS ORDERED: AZITHROMYCIN 250 MG TAB PO SCH (18:00)
== END 2022-04-06 14:58 | DRG 871 ==
LOC: ER 17:27 → ERHOLD 20:04 → MED/SURG3 22:04
PROVIDERS: ADMIT Internal Medicine; ATTEND Internal Medicine
PROC: 02HV33Z Insertion of Infusion Device into Superior Vena Cava, Percutaneous Approach (ICD-10-PCS; principal; 2022-04-04)
PROC: 3E04329 Introduction of Other Anti-infective into Central Vein, Percutaneous Approach (ICD-10-PCS; 2022-04-04)
DX: A41.9 Sepsis, unspecified organism (principal); J18.9 Pneumonia, unspecified organism; N17.0 Acute kidney failure with tubular necrosis; J96.21 Acute and chronic respiratory failure with hypoxia; N39.0 Urinary tract infection, site not specified; R65.20 Severe sepsis without septic shock; L89.312 Pressure ulcer of right buttock, stage 2; G30.9 Alzheimer's disease, unspecified; F02.80 Dementia in other diseases classified elsewhere, unspecified severity, without behavioral disturbance, psychotic disturbance, mood disturbance, and anxiety; L89.620 Pressure ulcer of left heel, unstageable; F41.1 Generalized anxiety disorder; I25.10 Atherosclerotic heart disease of native coronary artery without angina pectoris; G35 Multiple sclerosis; Z66 Do not resuscitate; M85.80 Other specified disorders of bone density and structure, unspecified site; Z95.5 Presence of coronary angioplasty implant and graft; M81.0 Age-related osteoporosis without current pathological fracture; D50.9 Iron deficiency anemia, unspecified; S80.811A Abrasion, right lower leg, initial encounter; S80.812A Abrasion, left lower leg, initial encounter; Z85.89 Personal history of malignant neoplasm of other organs and systems; Z87.891 Personal history of nicotine dependence; Z79.899 Other long term (current) drug therapy; Z88.1 Allergy status to other antibiotic agents; Z88.5 Allergy status to narcotic agent; Z88.0 Allergy status to penicillin; Z88.2 Allergy status to sulfonamides; Z74.01 Bed confinement status; Z86.16 Personal history of COVID-19; Z20.822 Contact with and (suspected) exposure to COVID-19; M21.379 Foot drop, unspecified foot; I48.91 Unspecified atrial fibrillation; Z79.01 Long term (current) use of anticoagulants
CPT/HCPCS: 36415; 36569; 71045; 80048; 80053; 81001; 82550; 82553; 82728; 83540; 83605; 84443; 84466; 84484; 85025; 85610; 85730; 87040; 93005; 93306; 94640; 94799; 96361; 97139; 99284; J0456; J0696; J1650; J7030; J7050; U0002